=== PATIENT | female | born 1945 | race Caucasian/White ===

== ENCOUNTER 2020-03-31 07:19 | Day surgery (SDC) | payer MEDICARE, OTHER ==
[~2020-03-31 07:19] MED LIST: Lactated Ringers 1,000 ML IV SCH; Sodium Chloride 0.9% 10 ML Syringe FLUSH PRN
[2020-03-31] MEDS ORDERED: Propofol 200 MG/20 ML SDV IV ONE (07:20)
[2020-03-31] MEDS ORDERED: Lidocaine 1% PF 2 ML SDV IV ONE (07:20)
--- NOTE | 2020-03-31 08:57 | PCM.OPNOTE ---
- General Post-Op/Procedure Note Date of Surgery/Procedure: 03/31/20 Operative Procedure(s): c scope Findings: diverticulosis Pre Op Diagnosis: colon cancer screening Post-Op Diagnosis: diverticulosis Anesthesia Technique: MAC Primary Surgeon: Luigi Goldsmith Anesthesia Provider: Brady Henry Pathology: none Complications: None Condition: Good Free Text/Narrative:: see dictation
--- NOTE | 2020-04-01 08:42 | OR ---
DATE OF OPERATION: 03/31/2020 SURGEON: Luigi Goldsmith MD PROCEDURE PERFORMED: Colonoscopy. PREOPERATIVE DIAGNOSIS: Colon cancer screening. POSTOPERATIVE DIAGNOSIS: Diverticulosis. INDICATIONS FOR PROCEDURE: This is a 75-year-old white female who presents for routine screening colonoscopy. She was offered and accepted same. DESCRIPTION OF OPERATION: After an excellent IV sedation was administered, digital rectal exam was performed. No marked abnormality was noted. Flexible colonoscope was inserted and advanced to the cecum. Prep was excellent. Following findings were noted: Ascending colon, unremarkable. Transverse colon, unremarkable. Descending colon, unremarkable. Sigmoid, some scattered diverticula. Rectum and anus, unremarkable. The patient tolerated the procedure well. RECOMMENDATIONS: Repeat colonoscopy on a p.r.n. basis. /[id number] /DAVIDE
== END 2020-03-31 09:37 | disposition home or self-care (01) ==
LOC: FB.SDS 07:19
PROVIDERS: ATTEND Surgery
DX: Z12.11 Encounter for screening for malignant neoplasm of colon (principal); K57.30 Diverticulosis of large intestine without perforation or abscess without bleeding; I10 Essential (primary) hypertension; G47.33 Obstructive sleep apnea (adult) (pediatric); Z79.899 Other long term (current) drug therapy; Z98.890 Other specified postprocedural states; Z88.1 Allergy status to other antibiotic agents; Z91.040 Latex allergy status
CPT/HCPCS: 00812; G0121; J2001; J2704; J7120